=== PATIENT | male | born 1940 | race Native Hawaiian/Other Pacific Islander ===

== ENCOUNTER 2018-03-26 12:39 | Outpatient (CLI) | payer OTHER ==
[2018-03-26 13:08] LABS: PLATELET COUNT 238 K/uL (142-355)
[2018-03-26 13:32] LABS: POTASSIUM 3.8 mmol/L (3.6-5.2)
== END 2018-03-26 21:26 | disposition home or self-care (01) ==
LOC: LABW 12:39
PROVIDERS: Internal Medicine
DX: N18.3 Chronic kidney disease, stage 3 (moderate) (principal); I10 Essential (primary) hypertension; I25.10 Atherosclerotic heart disease of native coronary artery without angina pectoris; Z79.899 Other long term (current) drug therapy; D64.9 Anemia, unspecified; M25.50 Pain in unspecified joint; E53.8 Deficiency of other specified B group vitamins; N40.0 Benign prostatic hyperplasia without lower urinary tract symptoms
CPT/HCPCS: 36415; 80053; 81000; 82043; 82306; 82330; 82570; 82607; 82728; 82746; 83036; 83540; 83550; 83735; 83970; 84100; 84153; 84155; 84439; 84443; 84550; 85027; 85651; 86430

== ENCOUNTER 2018-04-16 13:23 | Outpatient (CLI) | payer OTHER | END 2018-04-16 22:09 | disposition home or self-care (01) | LOC: LABW 13:23 | DX: M10.9 Gout, unspecified (principal) | CPT/HCPCS: 36415; 82955 ==

== ENCOUNTER 2018-10-23 08:01 | Outpatient (CLI) | payer OTHER ==
[2018-10-23 08:10] VITALS: BP 98/59; TEMP 97.4
== END 2018-10-23 09:20 | disposition home or self-care (01) ==
LOC: INF 08:01 → LAB 08:01 → INF 09:20
DX: M1A.9XX1 Chronic gout, unspecified, with tophus (tophi) (principal)
CPT/HCPCS: 82955; 84550

== ENCOUNTER 2018-10-25 07:54 | Outpatient (CLI) | payer OTHER ==
[~2018-10-25] VITALS: Ht 170.2 cm; Wt 79.8 kg
[2018-10-25 08:10] VITALS: BP 168/59; TEMP 97.7
== END 2018-10-25 23:15 | disposition home or self-care (01) ==
LOC: INF 07:54
DX: M1A.9XX0 Chronic gout, unspecified, without tophus (tophi) (principal)
CPT/HCPCS: 96365; 96366

== ENCOUNTER 2018-11-07 07:57 | Outpatient (CLI) | payer OTHER ==
[~2018-11-07] VITALS: Ht 170.2 cm; Wt 79.8 kg
[2018-11-07 08:05] VITALS: BP 143/52; BP 143/552; TEMP 98.5
== END 2018-11-07 13:10 | disposition home or self-care (01) ==
LOC: INF 07:57
DX: M10.9 Gout, unspecified (principal); R60.1 Generalized edema; R53.82 Chronic fatigue, unspecified; I25.10 Atherosclerotic heart disease of native coronary artery without angina pectoris; I12.9 Hypertensive chronic kidney disease with stage 1 through stage 4 chronic kidney disease, or unspecified chronic kidney disease; N18.3 Chronic kidney disease, stage 3 (moderate)
CPT/HCPCS: 36591; 84550; 96365; 96366

== ENCOUNTER 2018-11-15 09:03 | Outpatient (CLI) | payer OTHER | END 2018-11-15 19:12 | disposition home or self-care (01) | LOC: LABW 09:03 | DX: M10.9 Gout, unspecified (principal) | CPT/HCPCS: 36415; 84550 ==

== ENCOUNTER 2018-11-21 07:28 | Outpatient (CLI) | payer OTHER ==
[~2018-11-21] VITALS: Ht 170.2 cm; Wt 79.8 kg
[2018-11-21 08:05] VITALS: BP 133/46; TEMP 97.7
== END 2018-11-21 11:28 | disposition home or self-care (01) ==
LOC: INF 07:28
DX: M10.00 Idiopathic gout, unspecified site (principal)
CPT/HCPCS: 96365; 96366

== ENCOUNTER 2018-12-02 10:17 | Outpatient (CLI) | payer OTHER | END 2018-12-02 23:36 | disposition home or self-care (01) | LOC: LABW 10:17 | DX: M10.00 Idiopathic gout, unspecified site (principal) | CPT/HCPCS: 36415; 84550 ==

== ENCOUNTER 2018-12-03 07:34 | Outpatient (CLI) | payer OTHER ==
[~2018-12-03] VITALS: Ht 170.2 cm; Wt 79.8 kg
[2018-12-03 08:10] VITALS: BP 135/51; TEMP 97.8
== END 2018-12-03 11:37 | disposition home or self-care (01) ==
LOC: INF 07:34
DX: M10.00 Idiopathic gout, unspecified site (principal)
CPT/HCPCS: 96365; 96366; J2507

== ENCOUNTER 2018-12-18 11:28 | Outpatient (CLI) | payer OTHER | END 2018-12-18 23:45 | disposition home or self-care (01) | LOC: LABW 11:28 | DX: M10.00 Idiopathic gout, unspecified site (principal) | CPT/HCPCS: 36415; 84550 ==

== ENCOUNTER 2018-12-20 07:47 | Outpatient (CLI) | payer OTHER ==
[~2018-12-20] VITALS: Ht 170.2 cm; Wt 79.8 kg
[2018-12-20 08:00] VITALS: BP 162/77; TEMP 98.5
== END 2018-12-20 11:21 | disposition home or self-care (01) ==
LOC: INF 07:47
DX: M10.00 Idiopathic gout, unspecified site (principal)
CPT/HCPCS: 96365; 96366

== ENCOUNTER 2019-01-14 11:48 | Outpatient (CLI) | payer OTHER | END 2019-01-14 21:15 | disposition home or self-care (01) | LOC: LABW 11:48 | DX: M10.00 Idiopathic gout, unspecified site (principal) | CPT/HCPCS: 36415; 84550 ==

== ENCOUNTER 2019-01-17 08:06 | Outpatient (CLI) | payer OTHER ==
[~2019-01-17] VITALS: Ht 170.2 cm; Wt 79.8 kg
[2019-01-17 08:20] VITALS: BP 178/62; TEMP 98.1
== END 2019-01-17 12:10 | disposition home or self-care (01) ==
LOC: INF 08:06
DX: M10.00 Idiopathic gout, unspecified site (principal)
CPT/HCPCS: 96365; 96366; J2507

== ENCOUNTER 2019-01-27 14:30 | Outpatient (CLI) | payer OTHER | END 2019-01-27 23:59 | disposition home or self-care (01) | LOC: LABW 14:30 | DX: M10.00 Idiopathic gout, unspecified site (principal) | CPT/HCPCS: 36415; 84550 ==

== ENCOUNTER 2019-01-31 07:41 | Outpatient (CLI) | payer OTHER ==
[~2019-01-31] VITALS: Ht 170.2 cm; Wt 79.8 kg
[2019-01-31 07:55] VITALS: BP 162/49; TEMP 97.7
== END 2019-01-31 11:32 | disposition home or self-care (01) ==
LOC: INF 07:41
DX: M10.00 Idiopathic gout, unspecified site (principal)
CPT/HCPCS: 96365; 96366; J2507

== ENCOUNTER 2019-12-09 09:54 | Outpatient (CLI) | payer OTHER | END 2019-12-09 22:31 | disposition home or self-care (01) | LOC: LAB 09:54 | DX: Z20.828 Contact with and (suspected) exposure to other viral communicable diseases (principal); R53.83 Other fatigue | CPT/HCPCS: 87635; G2023; U00003 ==

== ENCOUNTER 2020-04-02 07:32 | Outpatient (CLI) | payer OTHER ==
[2020-04-02 08:02] LABS: PLATELET COUNT 221 K/uL (142-355)
[2020-04-02 08:29] LABS: POTASSIUM 4.4 mmol/L (3.6-5.2)
== END 2020-04-02 23:53 | disposition home or self-care (01) ==
LOC: LABW 07:32
PROVIDERS: Nurse Practitioner
DX: N18.30 Chronic kidney disease, stage 3 unspecified (principal); E79.0 Hyperuricemia without signs of inflammatory arthritis and tophaceous disease; R97.20 Elevated prostate specific antigen [PSA]
CPT/HCPCS: 36415; 80053; 81000; 82330; 82570; 83735; 83970; 84153; 84155; 84550; 85027

== ENCOUNTER 2020-12-03 09:34 | Outpatient (CLI) | payer OTHER ==
[2020-12-03 10:16] LABS: PLATELET COUNT 191 K/uL (142-355)
== END 2020-12-03 23:00 | disposition home or self-care (01) ==
LOC: LABW 09:34
PROVIDERS: ATTEND Nurse Practitioner
DX: R73.03 Prediabetes (principal); R97.20 Elevated prostate specific antigen [PSA]; E79.0 Hyperuricemia without signs of inflammatory arthritis and tophaceous disease; N18.32 Chronic kidney disease, stage 3b
CPT/HCPCS: 36415; 80053; 81000; 82330; 82570; 83036; 83735; 83970; 84153; 84155; 84550; 85027

== ENCOUNTER 2021-03-18 10:10 | Outpatient (CLI) | payer OTHER ==
[2021-03-18 10:43] LABS: PLATELET COUNT 198 K/uL (142-355)
[2021-03-18 11:29] LABS: POTASSIUM 3.9 mmol/L (3.6-5.2)
== END 2021-03-18 19:55 | disposition home or self-care (01) ==
LOC: LABW 10:10
PROVIDERS: ATTEND Internal Medicine
DX: I12.9 Hypertensive chronic kidney disease with stage 1 through stage 4 chronic kidney disease, or unspecified chronic kidney disease (principal); N18.32 Chronic kidney disease, stage 3b; E79.0 Hyperuricemia without signs of inflammatory arthritis and tophaceous disease; R73.03 Prediabetes; R97.20 Elevated prostate specific antigen [PSA]; K21.9 Gastro-esophageal reflux disease without esophagitis; E78.49 Other hyperlipidemia; J44.9 Chronic obstructive pulmonary disease, unspecified; C61 Malignant neoplasm of prostate; G25.81 Restless legs syndrome; J32.9 Chronic sinusitis, unspecified
CPT/HCPCS: 36415; 80053; 80061; 81000; 82330; 82570; 83036; 83735; 83970; 84153; 84155; 84439; 84443; 84550; 85027

== ENCOUNTER 2021-06-16 09:49 | Outpatient (CLI) | payer OTHER ==
[2021-06-16 10:52] LABS: PLATELET COUNT 219 K/uL (142-355)
[2021-06-16 11:18] LABS: POTASSIUM 3.4 mmol/L (3.6-5.2)
== END 2021-06-16 19:08 | disposition home or self-care (01) ==
LOC: LABW 09:49
PROVIDERS: ATTEND Nurse Practitioner Family
DX: I10 Essential (primary) hypertension (principal); E78.5 Hyperlipidemia, unspecified; J44.9 Chronic obstructive pulmonary disease, unspecified; C61 Malignant neoplasm of prostate; K21.9 Gastro-esophageal reflux disease without esophagitis; Z79.899 Other long term (current) drug therapy
CPT/HCPCS: 36415; 80053; 80061; 81000; 82043; 82306; 82570; 83036; 84153; 84436; 84443; 85027

== ENCOUNTER 2021-06-28 12:47 | Outpatient (CLI) | payer OTHER ==
[2021-06-28 13:08] LABS: PLATELET COUNT 208 K/uL (142-355)
[2021-06-28 13:24] LABS: POTASSIUM 3.5 mmol/L (3.6-5.2)
== END 2021-06-28 19:02 | disposition home or self-care (01) ==
LOC: LABW 12:47
PROVIDERS: ATTEND Nurse Practitioner
DX: N18.32 Chronic kidney disease, stage 3b (principal); E79.0 Hyperuricemia without signs of inflammatory arthritis and tophaceous disease; R73.03 Prediabetes
CPT/HCPCS: 36415; 80053; 81000; 82330; 82570; 83036; 83735; 83970; 84155; 84550; 85027

== ENCOUNTER 2021-09-30 11:49 | Outpatient (CLI) | payer OTHER ==
[2021-09-30 12:24] LABS: PLATELET COUNT 211 K/uL (142-355)
[2021-09-30 12:37] LABS: POTASSIUM 3.8 mmol/L (3.6-5.2)
== END 2021-09-30 18:56 | disposition home or self-care (01) ==
LOC: LABW 11:49
PROVIDERS: ATTEND Internal Medicine
DX: N18.32 Chronic kidney disease, stage 3b (principal); E79.0 Hyperuricemia without signs of inflammatory arthritis and tophaceous disease; R73.03 Prediabetes
CPT/HCPCS: 36415; 80053; 81000; 82330; 82570; 83036; 83735; 83970; 84156; 84550; 85027

== ENCOUNTER 2021-10-11 13:17 | Outpatient (CLI) | payer OTHER | END 2021-10-11 18:59 | disposition home or self-care (01) | LOC: US 13:17 | PROVIDERS: ATTEND Nurse Practitioner Family | DX: T14.8XXA Other injury of unspecified body region, initial encounter (principal); W19.XXXA Unspecified fall, initial encounter ==

== ENCOUNTER 2022-02-15 15:29 | Outpatient (CLI) | payer OTHER ==
[2022-02-15 16:27] LABS: PLATELET COUNT 182 K/uL (142-355)
[2022-02-15 16:36] LABS: POTASSIUM 4.5 mmol/L (3.6-5.2)
== END 2022-02-15 18:55 | disposition home or self-care (01) ==
LOC: LABW 15:29
PROVIDERS: ATTEND Internal Medicine
DX: N18.32 Chronic kidney disease, stage 3b (principal); R73.03 Prediabetes; E79.0 Hyperuricemia without signs of inflammatory arthritis and tophaceous disease
CPT/HCPCS: 36415; 80053; 81002; 82330; 82570; 83036; 83735; 83970; 84156; 84550; 85027

== ENCOUNTER 2022-07-11 14:44 | Outpatient (CLI) | payer OTHER ==
[2022-07-11 16:19] LABS: PLATELET COUNT 186 K/uL (142-355)
== END 2022-07-11 23:23 | disposition home or self-care (01) ==
LOC: LABW 14:44
PROVIDERS: ATTEND Internal Medicine
DX: N18.32 Chronic kidney disease, stage 3b (principal); E79.0 Hyperuricemia without signs of inflammatory arthritis and tophaceous disease
CPT/HCPCS: 36415; 80053; 81002; 82043; 82306; 82330; 82570; 83036; 83735; 83970; 84100; 84156; 84550; 85027

== ENCOUNTER 2022-09-25 07:35 | Outpatient (CLI) | payer OTHER | END 2022-09-25 18:56 | disposition home or self-care (01) | LOC: CT 07:35 | PROVIDERS: ATTEND Nurse Practitioner Family | DX: Z13.6 Encounter for screening for cardiovascular disorders (principal); Z87.891 Personal history of nicotine dependence; Z09 Encounter for follow-up examination after completed treatment for conditions other than malignant neoplasm ==

== ENCOUNTER 2022-12-07 10:30 | Outpatient (CLI) | payer OTHER | END 2022-12-07 22:21 | disposition home or self-care (01) | LOC: US 10:30 | PROVIDERS: ATTEND Nurse Practitioner Family | DX: R60.0 Localized edema (principal) ==

== ENCOUNTER 2023-01-18 08:58 | Outpatient (CLI) | payer OTHER | END 2023-01-18 19:44 | disposition home or self-care (01) | LOC: US 08:58 | PROVIDERS: ATTEND Nurse Practitioner Family | DX: E78.49 Other hyperlipidemia (principal) ==